=== PATIENT | male | born 1955 | race Caucasian/White ===

== ENCOUNTER 2018-09-16 14:17 | Outpatient (CLI) | payer BC, SELFPAY ==
--- NOTE | 2018-09-16 14:13 | DI.RAD_ITS ---
SYMPTOM/DIAGNOSIS: LT KNEE PAIN LEFT KNEE: Comparison is made with 06 June 2011. There is now mild narrowing of the medial femoral tibial joint space and mild periarticular spurring and sclerosis. Slight spurring is seen from the lateral femoral condyles as well as intracondylar notch. Mild spurring is seen at the patellofemoral joint. IMPRESSION: Mild degenerative changes of the left knee.
== END 2018-09-16 14:37 ==
PROVIDERS: PCP Internal Medicine; Visit Provider Physician Assistant
DX: M25.562 Pain in left knee (principal); M17.12 Unilateral primary osteoarthritis, left knee
CPT/HCPCS: 73562

== ENCOUNTER 2019-06-29 14:59 | Outpatient (REF) | payer OTHER, SELFPAY ==
[2019-06-29 21:47] LABS: ALT 26 U/L (16-63); AST 21 U/L (15-37); Anion Gap 8.3 mmol/L (3-11); BUN 17 mg/dL (7-18); CO2 28.7 mmol/L (21.0-32.0); CREATININE 0.84 mg/dL (0.70-1.30); Calcium 9.4 mg/dL (8.5-10.1); Calculated LDL 95 mg/dL; Chloride 104 mmol/L (98-107); Cholesterol 168 mg/dL (50-200); Glucose 92 mg/dL (70-100); HDL Cholesterol 65 mg/dL (40-60); Potassium 4.7 mmol/L (3.5-5.1); Sodium 141 mmol/L (136-145); Triglyceride 44 mg/dL (30-150)
[2019-07-01 11:33] LABS: PSA, Screening 0.4 ng/ml (0-4.5)
== END 2019-06-29 15:19 ==
LOC: NCHCN 14:59
PROVIDERS: PCP Internal Medicine; Visit Provider Nurse Practitioner Family
DX: Z00.00 Encounter for general adult medical examination without abnormal findings (principal); Z13.220 Encounter for screening for lipoid disorders; Z13.228 Encounter for screening for other metabolic disorders; Z12.5 Encounter for screening for malignant neoplasm of prostate
CPT/HCPCS: 80048; 80061; 84153; 84450; 84460

== ENCOUNTER 2019-12-21 10:49 | Outpatient (CLI) | payer OTHER, SELFPAY ==
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
== END 2019-12-21 11:09 ==
PROVIDERS: PCP Internal Medicine; Visit Provider Nurse Practitioner Family
DX: R09.89 Other specified symptoms and signs involving the circulatory and respiratory systems (principal)
CPT/HCPCS: 93880

== ENCOUNTER 2020-10-04 16:17 | Outpatient (REF) | payer OTHER, SELFPAY ==
[2020-10-04 22:35] LABS: Anion Gap 7.7 mmol/L (3-11); BUN 22 mg/dL (7-18); CO2 27.3 mmol/L (21.0-32.0); Calcium 9.4 mg/dL (8.5-10.1); Chloride 105 mmol/L (98-107); Glucose 93 mg/dL (74-106); Sodium 140 mmol/L (136-145)
[2020-10-06 08:45] LABS: PSA, Screening 0.4 ng/mL (0.0-4.5)
== END 2020-10-04 16:37 ==
LOC: NCHCN 16:17
PROVIDERS: PCP Internal Medicine; Visit Provider Nurse Practitioner Family
DX: R03.0 Elevated blood-pressure reading, without diagnosis of hypertension (principal); Z12.5 Encounter for screening for malignant neoplasm of prostate; Z80.42 Family history of malignant neoplasm of prostate
CPT/HCPCS: 80048; 84153

== ENCOUNTER 2020-12-25 10:35 | Emergency (ER) | payer OTHER, SELFPAY ==
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
[2020-12-25 10:47] VITALS: BP 146/65; PULSE 84; RESP 16; TEMP 36.3; O2SAT 99
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
[2020-12-25 11:20] LABS: Abs Immature Grans 0.04 10^3/uL (0.0-0.06); Absolute Basophil Count 0.07 10^3/uL (0.0-0.2); Absolute Eosinophil Count 0.54 10^3/uL (0.0-0.7); Absolute Lymphocyte Count 1.91 10^3/uL (1.2-3.4); Absolute Monocyte Count 0.57 10^3/uL (0.1-0.8); Basophils % 0.9; Eosinophils % 6.8; HCT 41.1 % (40.0-50.0); HGB 13.4 g/dL (13.5-17.5); Immature Grans % 0.5; Lymphocytes % 24.1; MCH 31.3 pg (27.0-33.0); MCHC 32.6 % (32.0-36.0); MPV 9.5 fL (8.0-11.0); Monocytes % 7.2; Neutrophils % 60.5; Nucleated RBC 0 %; Platelet Count 295 10^3/uL (130-400); RBC 4.28 10^6/uL (4.36-5.78); RDW 12.6 % (11.8-14.1); RDW-SD 44.4 fL; WBC 7.93 10^3/uL (4.4-10.8)
[2020-12-25 11:28] LABS: Prothrombin Time 9.7 sec (9.3-11.0)
[2020-12-25 11:30] LABS: ALT 27 U/L (16-63); AST 21 U/L (15-37); Albumin 4.1 g/dL (3.4-5.0); Alkaline Phosphatase 92 U/L (46-116); Anion Gap 8.6 mmol/L (3-11); BUN 17 mg/dL (7-18); Bilirubin, Total 0.4 mg/dL (0.2-1.0); CO2 29.4 mmol/L (21.0-32.0); CREATININE 0.8 mg/dL (0.70-1.30); Chloride 101 mmol/L (98-107); Glucose 105 mg/dL (74-106); Potassium 3.6 mmol/L (3.5-5.1); Sodium 139 mmol/L (136-145); Total Protein 7.7 g/dL (6.4-8.2)
[2020-12-25] MEDS: Omnipaque 350 MG/ML 100 ML BTL IV (11:40)
[2020-12-25] MEDS: Normal Saline - Diluent 50 ML VIAL IV (11:41)
[2020-12-25 12:35] VITALS: BP 137/62; PULSE 78; RESP 16; TEMP 36.3; O2SAT 99
== END 2020-12-25 12:36 | disposition home or self-care (01) ==
PROVIDERS: Emergency Provider Student in an Organized Health Care Education/Training Program; PCP Internal Medicine
DX: S42.115A Nondisplaced fracture of body of scapula, left shoulder, initial encounter for closed fracture (principal); V86.01XA Driver of ambulance or fire engine injured in traffic accident, initial encounter; Y99.0 Civilian activity done for income or pay
CPT/HCPCS: 36415; 74177; 80053; 86850; 86900; 86901; 99285; 70450; 71260; 72125; 85025; 85610; 99284; J3490

== ENCOUNTER 2021-02-07 10:07 | Outpatient (CLI) | payer OTHER, SELFPAY ==
--- NOTE | 2021-02-07 09:45 | DI.RAD_ITS ---
EXAM: XR SHOULDER LT COMPLETE 2+V CLINICAL HISTORY: f/u. TECHNIQUE: 2D digital imaging was performed. COMPARISON: CR LEFT CLAVICLE LTD from 06/16/2013 FINDINGS: There is a dorsal fixation plate across healing midshaft fracture of the left clavicle. This is diff icult to assess on these non dedicated clavicle views. Incidentally noted is a healed fracture of th e left 2nd rib. Also some degenerative change in the AC joint and mild degenerative changes in the g lenohumeral joint. There is also mild deformity of the acromion. Also diminution of the subacromial space. This may be related to chronic rotator cuff tearing. IMPRESSION: DATA REPOSITORY: RADIATION DOSE DELIVERED:
== END 2021-02-07 10:08 | disposition home or self-care (01) ==
LOC: DIORS 10:07
PROVIDERS: PCP Internal Medicine; Referring Provider Internal Medicine; Visit Provider Student in an Organized Health Care Education/Training Program
DX: S42.115D Nondisplaced fracture of body of scapula, left shoulder, subsequent encounter for fracture with routine healing (principal)
CPT/HCPCS: 73030

== ENCOUNTER 2021-07-06 03:58 | Outpatient (CLI) | payer OTHER, SELFPAY ==
--- NOTE | 2021-07-06 | DI.RAD_ITS ---
Exam(s) XR HUMERUS RT EXAM: XR HUMERUS RT CLINICAL HISTORY: ARM PAIN RT, M79.801. TECHNIQUE: 2D digital imaging was performed of the right humerus. Three images were obtained. AP a nd lateral views were obtained. COMPARISON: No exams were available for comparison FINDINGS: BONES: No acute fracture is present. No bony destructive lesion is seen. Visualized portion of elbow and shoulder joints are unremarkable. SOFT TISSUE: Normal. IMPRESSION: Unremarkable radiographs of the right humerus. DATA REPOSITORY: RADIATION DOSE DELIVERED:
--- NOTE | 2021-07-06 | DI.RAD_ITS ---
Exam(s) XR SHOULDER RT COMPLETE 2+V EXAM: XR SHOULDER RT COMPLETE 2+V CLINICAL HISTORY: ARM PAIN RT, M79.601. TECHNIQUE: 2D digital imaging was performed of the right shoulder. Five images were obtained. AP i nternal and external, Grashey, Y-view and axillary views were obtained. COMPARISON: No exams were available for comparison FINDINGS: BONES: No acute fracture is present. No bony destructive lesion is seen. JOINTS: No dislocation present. Moderately severe hypertrophic changes are seen at the acromioclavic ular joint. Mild hypertrophic changes are seen at the glenohumeral joint. SOFT TISSUE: Normal. IMPRESSION: Osteoarthritis of the right shoulder. DATA REPOSITORY: RADIATION DOSE DELIVERED:
== END 2021-07-06 04:18 ==
PROVIDERS: PCP Internal Medicine; Visit Provider Nurse Practitioner Family
DX: M79.601 Pain in right arm (principal); M19.011 Primary osteoarthritis, right shoulder
CPT/HCPCS: 73030; 73060

== ENCOUNTER 2021-07-26 01:45 | Outpatient (CLI) | payer OTHER, SELFPAY ==
--- NOTE | 2021-07-26 11:32 | DI.MRI_ITS ---
Exam(s) MR UPPER JOINT RT WO EXAM: MR UPPER JOINT RT WO CLINICAL HISTORY: RT SHOULDER PAIN, M25.511. TECHNIQUE: Multiplanar multisequence MRI was performed. COMPARISON: CR XR SHOULDER RT COMPLETE 2+V from 07/06/2021 FINDINGS: MR examination of the shoulder was performed according to the usual protocol. There are prominent underlying hypertrophic degenerative changes the acromioclavicular joint and to a lesser degree the glenohumeral joint. No fracture identified by MR criteria. There is a moderate size joint effusion which is contiguous with the sub acromial subdeltoid bursa. Glenoid labrum appears deformed anteriorly and superiorly consistent with chronic and/or post-traumat ic tear. There is apparent disruption of significant portions of the fibers of the subscapularis, supraspinatu s, and infraspinatus tendons with significant tendon gaps but probably some portions of the sub scapu maki and supraspinatus tendons remaining attached to the humeral head. There is significant retract ion of portions of the aforementioned tendons, the supraspinatus tendon appears to deflect anteriorly and inferiorly at level of the coracoid. There is poorly defined macerated tissue at multiple sites sites which makes exact anatomic evaluation difficult. There is abnormal signal in the distal biceps tendon and biceps anchor, the biceps tendon may be part ially torn at the level of the bicipital groove but there does not appear to be significant retractio n of the biceps tendon. The deltoid muscle appears grossly intact as visualized. IMPRESSION: No fracture identified. Severe complex soft tissue injury which involves a massive rotator cuff tear , there is associated labral tear, particularly anteriorly. Biceps tendon is probably partially torn as well, at the level of the bicipital groove. Please see above discussion. DATA REPOSITORY:
== END 2021-07-26 02:05 ==
PROVIDERS: PCP Internal Medicine; Visit Provider Nurse Practitioner Family
DX: M25.511 Pain in right shoulder (principal); M75.121 Complete rotator cuff tear or rupture of right shoulder, not specified as traumatic; S43.431A Superior glenoid labrum lesion of right shoulder, initial encounter
CPT/HCPCS: 73221

== ENCOUNTER 2021-10-25 17:59 | Outpatient (REF) | payer OTHER, SELFPAY ==
[2021-10-25 21:53] LABS: HGB 14.1 g/dL (13.5-17.5); MCH 30.4 pg (27.0-33.0); MCV 94.8 fL (80-95); Platelet Count 273 10^3/uL (130-400); RBC 4.64 10^6/uL (4.36-5.78); RDW 13.1 % (11.8-14.1); RDW-SD 45.9 fL; WBC 8.89 10^3/uL (4.4-10.8)
[2021-10-25 22:02] LABS: Anion Gap 6.4 mmol/L (3-11); BUN 15 mg/dL (7-18); CO2 29.6 mmol/L (21.0-32.0); CREATININE 0.7 mg/dL (0.70-1.30); Calcium 9.5 mg/dL (8.5-10.1); Chloride 103 mmol/L (98-107); Glucose 89 mg/dL (74-106); Potassium 4.8 mmol/L (3.5-5.1); Sodium 139 mmol/L (136-145)
[2021-10-26 18:19] LABS: PSA, Screening 0.4 ng/mL (0.0-4.5)
== END 2021-10-25 18:00 | disposition home or self-care (01) ==
LOC: NCHCN 17:59
PROVIDERS: PCP Nurse Practitioner Family; Visit Provider Nurse Practitioner Family
DX: Z00.00 Encounter for general adult medical examination without abnormal findings (principal); Z12.5 Encounter for screening for malignant neoplasm of prostate
CPT/HCPCS: 80048; 84153; 85027

== ENCOUNTER 2022-08-19 13:15 | Emergency (ER) | payer OTHER, SELFPAY ==
[2022-08-19 13:23] VITALS: BP 162/80; PULSE 86; RESP 17; TEMP 36.4; O2SAT 97
--- NOTE | 2022-08-19 14:30 | DI.RAD_ITS ---
Exam(s) XR HAND LT COMPLETE EXAM: XR HAND LT COMPLETE CLINICAL HISTORY: pain and deformity. TECHNIQUE: 2D digital imaging was performed of the left hand. Three views were obtained. AP, later al and oblique views were obtained. COMPARISON: No exams were available for comparison FINDINGS: BONES: There is an acute mildly impacted fracture through the distal metaphysis of the 4th metacarpal . The fracture does not appear to extend into the MCP joint. No bony destructive lesion is seen. JOINTS: No dislocation present. Moderate degenerative changes are seen at the 1st CMC joint. SOFT TISSUE: Normal. IMPRESSION: Acute mildly impacted fracture of the 4th metacarpal. DATA REPOSITORY: RADIATION DOSE DELIVERED:
--- NOTE | 2022-08-19 16:03 | W.ED.GENAD ---
Discharge Plan Disposition Patient Disposition: HOME Condition: Stable Discharge Details Clinical Impression: Finger fracture, left, Hand injury Primary Care Provider: Bhumika Suero ED Provider: Nayeli Perez Home Meds and New Rx's Prescriptions: Continued amlodipine 5 mg tablet 5 mg PO DAILY Multiple Vitamin-Minerals 1 EACH tablet 1 ea PO DAILY omeprazole 20 MG capsule,delayed release(DR/EC) 20 mg PO DAILY PRN PRN ibuprofen [Advil] 200 MG tablet 400 mg PO PRN (Reason: Pain) Discharge Instructions Instructions: Finger Fracture (ED) Additional Instructions: Wear the splint and follow-up with orthopedic Take ibuprofen and Tylenol as needed for pain Return earlier should you have new or worsening complaints Referrals: Salomón Guerra MD [ [facility] STAFF PHYSICIAN] - 1 day Discharge Data Discharge Date/Time-TO BE ENTERED AT DEPARTURE: 08/19/22 16:34 Medical Decision Making volar plate fracture and 4th mcp fracture left fourth digit Will place a splint and referred to orthopedics Referral orthopedics Ibuprofen and Tylenol for pain control Return precautions discussed and patient expressed understanding Medical Records Medical records reviewed: Yes I reviewed the patient's medical records. HPI General Date/Time Provider Initiated Documentation: 08/19/22 13:37. HPI Narrative: 67-year-old gentleman presents after a fall where his finger was deformed and he reduced it. He states this was yesterday. Presents secondary to swelling and pain. He denies any additional injuries and is otherwise healthy. Fall was mechanical in nature per patient. Related Data Home Medications Medication Instructions Recorded Confirmed multivitamin with minerals 1 ea PO DAILY 06/15/13 08/19/22 (Multiple Vitamin-Minerals tablet) omeprazole 20 mg capsule,delayed 20 mg PO DAILY PRN PRN 06/15/13 08/19/22 release ibuprofen 200 mg tablet (Advil) 400 mg PO PRN Pain 06/16/13 08/29/21 amlodipine 5 mg tablet 5 mg PO DAILY 01/10/21 08/19/22 Allergies Allergy/AdvReac Type Severity Reaction Status Date / Time clonazepam Allergy Unknown Unverified 08/19/22 13:27 divalproex sodium Allergy Unknown Unverified 08/19/22 13:27 [From Depakote] Penicillins Allergy Hives Unverified 08/19/22 13:27 General Stated Complaint: Orthopedic CRICKET: 4 Review of Systems All systems reviewed & are unremarkable except as noted in HPI and below PFSH All Active Problems (Updated 08/19/22 @ 16:05 by SALOMÓN Olguin) Finger fracture, left (Acute) Hand injury (Acute) Rotator cuff arthropathy of right shoulder (Acute) Traumatic tear of right rotator cuff (Acute) Traumatic tear of left rotator cuff (Acute) Rotator cuff tear arthropathy of left shoulder (Acute ~2012) Mass of sinus (Acute) Closed left scapular fracture (Acute 12/25/20) Primary osteoarthritis of left knee (Chronic) Surgical History Arthroplasty of knee 2011 left.HE Cholecystectomy 2003 Social History Smoking/Tobacco Use Status: Former Tobacco Use Smoking risk assessment performed?: Yes Alcohol Intake: never Drug use: Never Substance use type: does not use Current gender identity: male Exam Const General: cooperative and comfortable Extrem Other: Fourth digit with swelling and tenderness, hand swelling, significant swelling to PIP joint on fourth digit on left hand, ring in place Neurovascularly intact, no tenderness to left wrist Course Vital Signs Vital signs: Vital Signs Temperature 36.4 C 08/19/22 13:23 Pulse 86 08/19/22 13:23 Respiratory Rate 17 08/19/22 13:23 Blood Pressure 162/80 H 08/19/22 13:23 Pulse Oximetry 97 08/19/22 13:23 Temperature 36.4 C 08/19/22 13:23 Temperature Source Oral 08/19/22 13:23 Pulse 86 08/19/22 13:23 Respiratory Rate 17 08/19/22 13:23 Respiratory Effort Non-Labored 08/19/22 13:26 Blood Pressure 162/80 H 08/19/22 13:23 Blood Pressure Position Sitting 08/19/22 13:23 Pulse Oximetry 97 08/19/22 13:23 Oxygen Delivery Method Room Air 08/19/22 13:23 Oxygen Flow Rate 0 08/19/22 13:23 Pain Level 2 08/19/22 13:29
== END 2022-08-19 16:34 | disposition home or self-care (01) ==
PROVIDERS: Emergency Provider Physician Assistant; PCP Nurse Practitioner Family
DX: S62.635A Displaced fracture of distal phalanx of left ring finger, initial encounter for closed fracture (principal); W18.39XA Other fall on same level, initial encounter
CPT/HCPCS: 29130; 99283; 73130

== ENCOUNTER 2022-10-02 14:37 | Outpatient (CLI) | payer OTHER, SELFPAY ==
--- NOTE | 2022-10-02 14:00 | DI.RAD_ITS ---
Exam(s) XR HAND LT LIMITED EXAM: XR HAND LT LIMITED CLINICAL HISTORY: finger pain. TECHNIQUE: 2D digital imaging was performed. COMPARISON: CR XR HAND LT COMPLETE from 08/19/2022 FINDINGS: Two views: No evidence of acute fracture nor dislocation. Subtle healing fracture site in the head of the 4th m etacarpal noted. No additional fractures. No osseous lesions nor erosions. IMPRESSION: DATA REPOSITORY: RADIATION DOSE DELIVERED:
== END 2022-10-02 14:38 | disposition home or self-care (01) ==
LOC: DIORS 14:38
PROVIDERS: PCP Nurse Practitioner Family; Referring Provider Nurse Practitioner Family; Visit Provider Student in an Organized Health Care Education/Training Program
DX: M79.642 Pain in left hand (principal)
CPT/HCPCS: 73120

== ENCOUNTER 2022-12-03 18:30 | Outpatient (REF) | payer BC, SELFPAY ==
[2022-12-03 20:45] LABS: HCT 42.2 % (40.0-50.0); MCHC 33.2 % (32.0-36.0); MCV 93 fL (80-95); MPV 9.6 fL (8.0-11.0); Platelet Count 254 10^3/uL (130-400); RBC 4.52 10^6/uL (4.36-5.78); RDW 12.6 % (11.8-14.1); RDW-SD 43.3 fL; WBC 7.93 10^3/uL (4.4-10.8)
[2022-12-03 20:59] LABS: ALT 35 U/L (16-63); AST 27 U/L (15-37); Albumin 4.3 g/dL (3.4-5.0); Alkaline Phosphatase 72 U/L (46-116); Anion Gap 8.2 mmol/L (3-11); BUN 17 mg/dL (7-18); Bilirubin, Total 0.4 mg/dL (0.2-1.0); CO2 28.8 mmol/L (21.0-32.0); CREATININE 0.8 mg/dL (0.70-1.30); Calcium 9.4 mg/dL (8.5-10.1); Chloride 104 mmol/L (98-107); Estimated GFR 97.61 (mL/min/1.73m2); Glucose 105 mg/dL (74-106); Potassium 4.2 mmol/L (3.5-5.1); Sodium 141 mmol/L (136-145); Total Protein 7.1 g/dL (6.4-8.2)
[2022-12-04 18:29] LABS: PSA, Screening 0.4 ng/mL (<=4.5)
== END 2022-12-03 18:31 | disposition home or self-care (01) ==
LOC: NCHCN 18:30
PROVIDERS: PCP Nurse Practitioner Family; Visit Provider Nurse Practitioner Family
DX: Z00.00 Encounter for general adult medical examination without abnormal findings (principal); Z12.5 Encounter for screening for malignant neoplasm of prostate; I10 Essential (primary) hypertension
CPT/HCPCS: 80053; 84153; 85027

== ENCOUNTER 2023-01-20 00:31 | Outpatient (CLI) | payer BC, SELFPAY ==
--- NOTE | 2023-01-20 | DI.CT_ITS ---
Exam(s) CT SINUS W EXAM: CT SINUS W CLINICAL HISTORY: MASS OF NASAL SINUS, R22.0. TECHNIQUE: Imaging Protocol: Axial computed tomography images with coronal and sagittal reformatted images were created and reviewed. CONTRAST MATERIAL: Intravenous: Omnipaque 350 contrast volume:100 mL COMPARISON: CT CT HEAD CERVICAL SPINE WO from 12/25/2020 FINDINGS: AXIAL IMAGES: Frontal sinuses: There is again seen a 1 x 1.5 cm mass in the left frontal sinus-frontal ethmoidal re cess. It is show no significant change compared to the prior examination. No destructive changes ar e seen in the surrounding bone. No associated soft tissue mass is appreciated. There is mild mucosa l thickening in the right frontal sinus. Ethmoid air cells: Normally aerated. Maxillary sinuses: There is mild mucosal thickening in the maxillary sinuses bilaterally. Sphenoid sinus: Normally aerated. Ostiomeatal complexes: There is obstruction of the ostiomeatal complexes bilaterally. Osseous nasal septum: There is mild leftward deviation of the nasal septum. Visualized regional soft tissues: No acute findings. Orbits: Unremarkable. Bones: Unremarkable. Mastoid Air Cells: Normally aerated. [id number]: Unremarkable. IMPRESSION: 1. Stable mass in the left frontal sinus/frontal ethmoid recess. This likely reflects a benign lesio n. No destructive changes or associated soft tissue mass is appreciated. 2. Mild mucosal thickening seen in the frontal sinus and maxillary sinuses. RADIATION DOSE DELIVERED: 123.14mGy.cm Total DLP 123.14mGy.cm Total DLP 123.14mGy.cm Total DLP DATA REPOSITORY: All CT scans at this facility are submitted to the National Radiology Data Registry (NRDR) Dose Index Registry (DIR) with the [employer] ([employer]). RADIATION OPTIMIZATION: All CT scans at this facility use at least one of these dose optimization te chniques: automated exposure control; mA and/or kV adjustment per patient size (includes targeted exa ms where dose is matched to clinical indication); or iterative reconstruction.
--- NOTE | 2023-01-20 | DI.US_ITS ---
Exam(s) US ABDOMEN EXAM: US ABDOMEN CLINICAL HISTORY: GB POLYPS,K82.4,F/U ABNL IMAGING OF ABD, R93.5,LIVER LESION TECHNIQUE: Ultrasound abdomen performed using standard protocol. COMPARISON: US US ABDOMEN from 11/01/2021 FINDINGS: ABDOMINAL AORTA AND IVC: Visualized portions normal caliber. PANCREAS: Normal where visualized. LIVER: Normal. Hepatopedal flow in the Portal Vein. GALLBLADDER:There are mobile gallstones present. The also appear to be a few echogenic immobile nodu le along the wall of the gallbladder. The largest measures 5 mm. These likely reflect small polyps. No evidence of wall thickening. No pericholecystic fluid identified. BILIARY SYSTEM: Common bile duct measures < 7 mm. No intrahepatic biliary ductal dilation. ELLIS'S SIGN: Negative. KIDNEYS: Kidneys are symmetric in size. No evidence of renal calculi. No evidence of hydronephrosis. No renal mass or cyst identified. SPLEEN: Not enlarged. ASCITES: None seen. IMPRESSION: Gallstones and gallbladder polyps. DATA REPOSITORY:
[2023-01-20] MEDS: Omnipaque 350 MG/ML 500 ML BTL-Imaging package IJ (09:40)
[2023-01-20] MEDS: Normal Saline Flush 10 ML SYR IVP (09:41)
[2023-01-20] MEDS: Normal Saline - Diluent 50 ML VIAL IJ (09:41)
== END 2023-01-20 00:51 ==
PROVIDERS: PCP Nurse Practitioner Family; Visit Provider Nurse Practitioner Family
DX: R22.0 Localized swelling, mass and lump, head (principal); K82.4 Cholesterolosis of gallbladder; R93.5 Abnormal findings on diagnostic imaging of other abdominal regions, including retroperitoneum
CPT/HCPCS: 70487; 76700

== ENCOUNTER 2023-12-09 17:49 | Outpatient (REF) | payer BC, SELFPAY ==
[2023-12-09 21:58] LABS: HCT 41.8 % (40.0-50.0); HGB 14.5 g/dL (13.5-17.5); MCH 32.2 pg (27.0-33.0); MCHC 34.7 % (32.0-36.0); MCV 93 fL (80-95); MPV 10.2 fL (8.0-11.0); Platelet Count 254 10^3/uL (130-400); RDW 12.7 % (11.8-14.1); RDW-SD 42.6 fL; WBC 7.29 10^3/uL (4.4-10.8)
[2023-12-09 22:08] LABS: ALT 32 U/L (16-63); AST 21 U/L (15-37); Albumin 4.1 g/dL (3.4-5.0); Alkaline Phosphatase 80 U/L (46-116); Anion Gap 10.1 mmol/L (3-11); BUN 17 mg/dL (7-18); Bilirubin, Total 0.4 mg/dL (0.2-1.0); CO2 27.9 mmol/L (21.0-32.0); CREATININE 0.8 mg/dL (0.70-1.30); Calcium 9.3 mg/dL (8.5-10.1); Chloride 103 mmol/L (98-107); Glucose 93 mg/dL (74-106); Potassium 4.1 mmol/L (3.5-5.1); Sodium 141 mmol/L (136-145); Total Protein 7.1 g/dL (6.4-8.2)
[2023-12-10 17:07] LABS: PSA, Screening 0.4 ng/mL (<=4.5)
== END 2023-12-09 17:50 | disposition home or self-care (01) ==
LOC: NCHCN 17:49
PROVIDERS: PCP Nurse Practitioner Family; Visit Provider Nurse Practitioner Family
DX: I10 Essential (primary) hypertension (principal); K21.9 Gastro-esophageal reflux disease without esophagitis; Z12.5 Encounter for screening for malignant neoplasm of prostate
CPT/HCPCS: 80053; 84153; 85027

== ENCOUNTER 2024-12-23 13:06 | Outpatient (REF) | payer OTHER, SELFPAY ==
[2024-12-23 15:12] LABS: HCT 45.1 % (40.0-50.0); MCH 31.7 pg (27.0-33.0); MCHC 33.3 % (32.0-36.0); MCV 95 fL (80-95); MPV 11.2 fL (8.0-11.0); Platelet Count 214 10^3/uL (130-400); RBC 4.73 10^6/uL (4.36-5.78); RDW 12.6 % (11.8-14.1); RDW-SD 43.8 fL; WBC 6.32 10^3/uL (4.4-10.8)
[2024-12-23 16:25] LABS: ALT 33 U/L (16-63); AST 29 U/L (15-37); Albumin 4.1 g/dL (3.4-5.0); Alkaline Phosphatase 87 U/L (46-116); Anion Gap 10.3 mmol/L (3-11); BUN 15 mg/dL (7-18); Bilirubin, Total 0.7 mg/dL (0.2-1.0); CO2 28.7 mmol/L (21.0-32.0); CREATININE 0.8 mg/dL (0.70-1.30); Calcium 9.7 mg/dL (8.5-10.1); Calculated LDL 117 mg/dL (<100); Chloride 105 mmol/L (98-107); Cholesterol 201 mg/dL (<200); Glucose 102 mg/dL (74-106); HDL Cholesterol 76 mg/dL (>or=40); Sodium 144 mmol/L (136-145); Total Protein 7.3 g/dL (6.4-8.2); Triglyceride 43 mg/dL (<150)
[2024-12-23 22:51] LABS: PSA, Screening 0.5 ng/mL (<=4.5)
== END 2024-12-23 13:07 | disposition home or self-care (01) ==
LOC: NCHCN 13:06
PROVIDERS: PCP Nurse Practitioner Family; Visit Provider Nurse Practitioner Family
DX: I10 Essential (primary) hypertension (principal); Z12.5 Encounter for screening for malignant neoplasm of prostate; K76.0 Fatty (change of) liver, not elsewhere classified
CPT/HCPCS: 80053; 80061; 84153; 85027